=== PATIENT | male | born 1995 | race Caucasian/White ===

== ENCOUNTER 2019-10-29 20:53 | Emergency (ER) | payer OTHER ==
--- NOTE | 2019-10-29 21:55 | EDM.PDOC ---
ED HPI GENERAL MEDICAL PROBLEM - General Chief Complaint: Lower Extremity Injury/Pain Stated Complaint: LT ANKLE INJURY Time Seen by Provider: 10/29/19 20:58 Source of Information: Reports: Patient History Limitations: Reports: No Limitations - History of Present Illness INITIAL COMMENTS - FREE TEXT/NARRATIVE: The patient presents with left ankle pain. 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 He could not walk on it. He has swelling to the front and medial ankle. He has no other injuries. Left Ankle Pain Score (Numeric/FACES): 8 - Related Data Allergies Allergy/AdvReac Type Severity Reaction Status Date / Time No Known Allergies Allergy Verified 10/29/19 21:04 Home Meds: Home Meds . [No Known Home Meds] 10/29/19 [History] Past Medical History - Past Health History Medical/Surgical History: Denies Medical/Surgical History - Infectious Disease History Infectious Disease History: Reports: None Social & Family History - Tobacco Use Smoking Status *Q: Never Smoker - Caffeine Use Caffeine Use: Reports: Energy Drinks - Recreational Drug Use Recreational Drug Use: No Review of Systems - Review of Systems Review Of Systems: See Below Constitutional: Reports: No Symptoms Eyes: Reports: No Symptoms Ears: Reports: No Symptoms Nose: Reports: No Symptoms Mouth/Throat: Reports: No Symptoms Respiratory: Reports: No Symptoms Cardiovascular: Reports: No Symptoms GI/Abdominal: Reports: No Symptoms Genitourinary: Reports: No Symptoms Musculoskeletal: Reports: Other (Left ankle pain and swelling) ED EXAM, GENERAL - Physical Exam Exam: See Below Exam Limited By: No Limitations General Appearance: Alert, No Apparent Distress Ears: Normal External Exam Nose: Normal Inspection Head: Atraumatic, Normocephalic Neck: Normal Inspection Respiratory/Chest: No Respiratory Distress Extremities: Other (Pain upon palpation with edema to the left anterior medial ankle. Good sensation and pulses distally.) Course - Vital Signs Last Recorded V/S: Last Vital Signs Temp 98.8 F 10/29/19 21:00 Pulse 108 H 10/29/19 21:00 Resp 16 10/29/19 21:00 BP 142/90 H 10/29/19 21:00 Pulse Ox 97 10/29/19 21:00 - Orders/Labs/Meds Orders: Active Orders 24 hr Category Date Time Status Ankle Min 3V Lt [CR] Stat Exams 10/29/19 21:02 Taken - Re-Assessments/Exams Free Text/Narrative Re-Assessment/Exam: 10/29/19 21:53 His ankle x-ray shows no fractures. I will discharge him home with an carter wrap and he already has crutches. Departure - Departure Time of Disposition: 21:55 Disposition: Home, Self-Care 01 Condition: Good Clinical Impression: Contusion of left ankle Qualifiers: Encounter type: initial encounter Qualified Code(s): S90.02XA - Contusion of left ankle, initial encounter - Discharge Information *PRESCRIPTION DRUG MONITORING PROGRAM REVIEWED*: Not Applicable *COPY OF PRESCRIPTION DRUG MONITORING REPORT IN PATIENT ALEXIS: Not Applicable Referrals: PCP,None [Primary Care Provider] - Oh Medina MD [Physician] - 1 Week Additional Instructions: Ice your ankle for 15 minutes 5 times per day for 2 days. Elevate your ankle as much as you can for 2 days. Take tylenol or motrin as needed for pain. Wrap with an carter wrap and use the crutches. Put light weight on your ankle and advance as tolerated. 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 Sepsis Event Note (ED) - Evaluation Sepsis Screening Result: No Definite Risk - Focused Exam Vital Signs: Vital Signs Temp Pulse Resp BP Pulse Ox 10/29/19 21:00 98.8 F 108 H 16 142/90 H 97 - My Orders Last 24 Hours: My Active Orders 10/29/19 21:02 Ankle Min 3V Lt [CR] Stat - Assessment/Plan Last 24 Hours: My Active Orders 10/29/19 21:02 Ankle Min 3V Lt [CR] Stat
--- NOTE | 2019-10-30 11:39 | CR ---
Left ankle: 3 views left ankle were obtained. Comparison: No previous study. Ankle mortise is symmetric. No acute fracture, dislocation or other bony abnormalities appreciated. Impression: 1. Nothing acute is seen on left ankle exam. Diagnostic code #1 This report was dictated in MDT
== END 2019-10-29 22:08 | disposition home or self-care (01) ==
LOC: JD.ED 20:53
DX: S90.02XA Contusion of left ankle, initial encounter (principal); W50.0XXA Accidental hit or strike by another person, initial encounter; Y93.64 Activity, baseball
CPT/HCPCS: 73610-26-LT; 73610-LT; 99282; 99283-25